=== PATIENT | male | born 1985 | race American Indian/Alaskan Native ===

== ENCOUNTER 2019-01-19 15:08 | Emergency (ER) | payer OTHER ==
--- NOTE | 2019-01-19 15:14 | Emergency Department Report ---
Blank Doc - Documentation Documentation: This is a 33-year-old male that presents with left shoulder pain. This initial assessment/diagnostic orders/clinical plan/treatment(s) is/are subject to change based on patient's health status, clinical progression and re- assessment by fellow clinical providers in the ED. Further treatment and workup at subsequent clinical providers discretion. Patient/guardians urged not to elope from the ED as their condition may be serious if not clinically assessed and managed. Initial orders include: 1- Patient sent to MAIN ED for further evaluation and treatment 2- xray
[2019-01-19] MEDS ORDERED: SUBLIMAZE IV ONE (15:22)
[2019-01-19] MEDS ORDERED: NACL 0.9% 1000 ML 1,000 ML IV ONE (15:22)
[2019-01-19] MEDS ORDERED: NACL 0.9% 1000 ML 1,000 ML ONE (15:25)
[2019-01-19] MEDS ORDERED: SUBLIMAZE ONE (15:29)
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
[2019-01-19] MEDS ORDERED: KETAMINE HCL IV ONE (15:54)
[2019-01-19] MEDS ORDERED: DIPRIVAN 10 MG/ML IV ONE ×2 (15:54→17:08)
--- NOTE | 2019-01-19 16:18 | XRay Report ---
PROCEDURE: XR SHOULDER 2+V LT TECHNIQUE: Left shoulder radiographs, 3 views. HISTORY: left shoulder pain COMPARISONS: None currently available. FINDINGS: There is no acute fracture. There is no evidence for healing fracture. Relative to the glenoid, the humeral head is inferior and anterior. No significant arthrosis. There is no cortical destruction to suggest osteomyelitis. There are no suspicious osseous lesions. There are no radiopaque foreign objects. IMPRESSION: * No acute fracture. * Anterior dislocation. This document is electronically signed by Tez Moffett MD., January 19 2019 04:16:34 PM ET
--- NOTE | 2019-01-19 17:09 | XRay Report ---
PROCEDURE: XR SHOULDER 1V LT TECHNIQUE: Frontal view of the left shoulder. HISTORY: post reduction COMPARISONS: Earlier today. FINDINGS: The left glenohumeral joint dislocation appears to have been relocated. No fracture. Normal mineraliz ation. No soft tissue abnormality. IMPRESSION: Status post relocation of the left glenohumeral joint dislocation.. This document is electronically signed by Selma Tello., January 19 2019 05:06:50 PM ET
[2019-01-19 17:55] VITALS: BP 142/103
== END 2019-01-19 17:55 | disposition home or self-care (01) ==
LOC: ED 15:08
DX: S43.005A Unspecified dislocation of left shoulder joint, initial encounter (principal); F12.10 Cannabis abuse, uncomplicated; Y08.89XA Assault by other specified means, initial encounter; Y93.89 Activity, other specified; Y92.89 Other specified places as the place of occurrence of the external cause; Y99.8 Other external cause status
CPT/HCPCS: 23650; 73020; 73030; 96374; 99284; J2704; J3010; J7030

== ENCOUNTER 2020-04-27 01:52 | Emergency (ER) | payer SELFPAY ==
--- NOTE | 2020-04-27 02:29 | XRay Report ---
LEFT SHOULDER 3 VIEWS INDICATION / CLINICAL INFORMATION: pain. COMPARISON: None available. FINDINGS: Humeral head is dislocated anterior inferiorly with respect to the glenoid. No fracture or dislocatio n is seen. Postreduction radiographs recommended. Signer Name: Zach An MD Signed: 04/27/2020 2:24 AM Workstation Name: [id number]
[2020-04-27] MEDS ORDERED: HYDROmorphone 1 MG/1 ML INJ ONE (03:08)
[2020-04-27] MEDS ORDERED: ONDANSETRON 4 MG/2 ML INJ ONE (03:08)
[2020-04-27] MEDS ORDERED: LIDOCAINE (2%) 20 MG/1 ML VIAL 20 ML MDV INFILTRATI ONE ×2 (03:09→03:17)
[2020-04-27] MEDS ORDERED: HYDROmorphone 1 MG/1 ML INJ IV ONE (03:16)
[2020-04-27] MEDS ORDERED: ONDANSETRON 4 MG/2 ML INJ IV ONE (03:16)
[2020-04-27] MEDS ORDERED: LIDOCAINE (1%) 10 MG/1 ML VIAL 20 ML MDV INFILTRATI ONE (03:41)
[2020-04-27] MEDS ORDERED: ETOMIDATE 20 MG/10 ML INJ IV ONE ×4 (03:49→06:17)
--- NOTE | 2020-04-27 04:27 | XRay Report ---
. LEFT SHOULDER 1 VIEW INDICATION / CLINICAL INFORMATION: post reduction. COMPARISON: Left shoulder x-ray 2:18 AM same day FINDINGS: The humeral head has been reduced since prior study. No fracture is seen. Signer Name: Zach An MD Signed: 04/27/2020 4:23 AM Workstation Name: [id number]
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
[2020-04-27 06:45] VITALS: BP 127/83
== END 2020-04-27 05:20 | disposition home or self-care (01) ==
LOC: ED 01:52
PROC: 0RSKXZZ Reposition Left Shoulder Joint, External Approach (ICD-10-PCS; principal; 2020-04-27)
DX: S43.005A Unspecified dislocation of left shoulder joint, initial encounter (principal); F12.90 Cannabis use, unspecified, uncomplicated; Z79.899 Other long term (current) drug therapy; Z98.890 Other specified postprocedural states; X58.XXXA Exposure to other specified factors, initial encounter; Y93.89 Activity, other specified; Y92.89 Other specified places as the place of occurrence of the external cause; Y99.8 Other external cause status
CPT/HCPCS: 23650; 73020; 73030; 96374; 96375; 99284; J1170; J2405